=== PATIENT | male | born 1950 | race Caucasian/White ===

== ENCOUNTER 2017-06-03 14:10 | Inpatient (IN) | payer OTHER, MEDICAID ==
[2017-06-03] VITALS (9 sets, daily range): BP systolic 133–180; BP diastolic 1–114; PULSE 87–105; RESP 19–22; O2SAT 95–97
[~2017-06-03] VITALS: Ht 180.3 cm; Wt 107.3 kg
--- NOTE | 2017-06-03 14:12 | ED.REPORT ---
HPI-Chest Pain 40 and Over Date of Service Jun 03, 2017 ED Provider: Uriel Blackman MD Patient is a 66 year old male with a hx of DM and kidney stones who presents to the ED via EMS from [facility] for a STEMI onset this afternoon. He walked into [facility] grasping his chest, diaphoretic, complaining of chest pain and dizziness. After a confirmed STEMI via EKG, he was given a Heprin bolus, nitro x3, and ASA. He denies vomiting, headache, or any other symptoms. His pain is still a 10/10 upon arrival. Nursing Notes Stated Complaint: STEMI Nursing Notes Reviewed: Yes Allergies: Coded Allergies: No Known Allergies (Verified Allergy, Severe, 11/27/03) Uncoded Allergies: ENVIRONMENTAL (Allergy, Unknown, 01/11/08) General Time Seen by MD: 14:08 Chief Complaint Chest pain Hx Obtained From: Patient, EMS Arrived By: Ambulance Sudden in Onset?: Yes Onset Occurred: 1 - 4 hours ago Symptom Duration: Since onset Similar Sx Previous: No Risk Factors )( CAD Risk Stratification Diabetes mellitusNo Hyperlipidemia, No Hypertension, No Known CAD Risk factors reviewed )( TAD Risk Stratification No Aortic valve disease, No Coarctation of aorta, No Marfan's syndrome, No Risk factors reviewed )( PE Risk Stratification No , No , No Previous DVT, No Previous PE Risk factors reviewed Past Medical History Past Medical History DM Kidney stones (x40, per patient) Past Surgical History Kidney stone removal Smoking History Unknown if Ever Smoker Ambulatory Status Independent Review of Systems Cardiovascular: Reports: Chest pain GI: Denies: Vomiting Skin: Reports Diaphoresis Neurologic: Reports: Dizziness, Denies: Headache Complete sys rev & neg: except as marked. Physical Exam Initial Vital Signs Vital Signs (First) Date Time Temp Pulse Resp B/P Pulse Ox O2 Delivery O2 Flow Rate FiO2 06/03/17 14:19 37.4 105 20 180/114 97 Room Air Initial VS: Reviewed, Vital signs abnormal Head / Eyes: Atraumatic, Normocephalic Neck: Full range of motion Skin: Warm, Dry Neurologic: Alert, Oriented, Nonfocal Psychiatric: Mood/affect normal, Behavior normal, Normal thought content General/Constitutional: Awake, Alert Distress / Hydration: Positive: Distress moderate Respiratory / Chest: Breath sounds NL, Breath sounds = bilat, No respiratory distress Cardiovascular: Heart rate NL, Regular rhythm, Heart sounds NL Abdomen: Atraumatic, Soft, Non-tender Re-Eval/Medical Decision Med Decision/Clinical Course 66-year-old male history of diabetes, hyperlipidemia, hypertension presenting as code STEMI. Patient with chest pain and diaphoresis earlier today presented to outside hospital noticed inferior [place] on EKG. Code STEMI was called patient transferred. Patient was evaluated in the ER and EKG shows inferior [place]. Patient with heparin that it been started. Received [address] Louie, interventional cardiology evaluated the patient immediately on arrival patient was taken emergently to the Transportation Clerk. Time of Eval: 14:12 Re-Evaluation/Progress Note: Discussed plan for laboratory clerk. Patient understands and agrees with plan. All questions addressed at this time. Consultation : Referral / Consult Name: Noman Louie MD Consulted With: Cardiology Call Returned at: 14:12 Wad Compressor Operator Adjuster: Will see patient, Agrees with eval, Agrees with plan, Requested laboratory clerk Note: Discussed pt's case. Will take to laboratory clerk Counseled Regarding: Diagnosis, Need for admission Discharge & Departure Primary Impression: STEMI (ST elevation myocardial infarction) Involved coronary artery: unspecified coronary artery Qualified Code: I21.3 - ST elevation (STEMI) myocardial infarction of unspecified site Disposition: ADMITTED TO HOSPITAL Discharge Condition All VS Reviewed: Yes Condition: Stable Referrals: Adrien Colon MD (PCP/Family) Crit Care Except Billable Proc Time Spent: 30-74 minutes Services Performed: Patient management by me, Time spent at bedside, Reviewing test results, Reviewing imaging, Discussing patient care, Documentation in record, Time with fam/surrogate Scribe Attestation Portions of this note were transcribed by Emily Burden. I, Dr. Blackman personally performed the history, physical exam and medical decision-making; I reviewed and confirmed the accuracy of the information in the transcribed note. copies to: Adrien Colon MD, Ben M MD Jun 03, 2017 14:12 EMILY BURDEN Jun 03, 2017 14:20
[2017-06-03] MEDS ORDERED: fentaNYL-PF 50 mCg/mL 2 mL Inj ONE ×2 (14:30→15:37)
[2017-06-03] MEDS ORDERED: Heparin 10,000 Unit/1,000 mL NS Premix IV ONE ×2 (14:42→14:54)
[2017-06-03] MEDS ORDERED: Heparin 1,000 Unit/mL 10 mL Inj ONE ×2 (14:54→15:08)
[2017-06-03] MEDS ORDERED: Phenylephrine/NS-PF 100 mCg/mL 5 mL Syringe IVPUSH ONE (14:54)
[2017-06-03] MEDS ORDERED: Atropine 1 mg/10 mL (Code) Syringe ONE (14:54)
[2017-06-03] MEDS ORDERED: Heparin 1,000 Units/500 mL NS Premix IV ONE (14:54)
[2017-06-03] MEDS ORDERED: Ondansetron 2 mg/mL 2 mL Inj ONE (15:15)
--- NOTE | 2017-06-03 17:09 | NUR ---
From tutorial laboratory supervisor to CCU #[id number] at 1630 post RCA stents. Painfree and in no distress, in good spirits. Right groin with gauze and clear occlusive dressings, clean/dry/intact. Drowsy, no visitors at this time. Sinus rhythm on tele, a bit hypertensive. Follow-up EKG, CXR ordered. Orders noted.
--- NOTE | 2017-06-03 17:51 | DRSVH ---
PROCEDURE: X-RAY CHEST ONE VIEW, PORTABLE ([id number]) INDICATIONS: Chest pain TECHNIQUE: One view of the chest was acquired. COMPARISON: None. FINDINGS: Surgical changes and devices: None. Lungs and pleura: No pleural effusions or pneumothorax. Lungs are clear. Mediastinum: Mediastinal contours appear normal. Heart size is normal. Bones and chest wall: No suspicious bony lesions. Overlying soft tissues appear unremarkable. IMPRESSION: 1. No acute cardiopulmonary disease. Dictated by: Chai Toure M.D. on 06/03/2017 at 17:47 Approved by: Chai Toure M.D. on 06/03/2017 at 17:50
[2017-06-03] MEDS ORDERED: Sodium Chloride LOK Flush 10 mL Syringe IVFLUSH PRN (18:10)
[2017-06-03] MEDS ORDERED: 0.9% Sodium Chloride 1,000 ML IV ONE (18:10)
[2017-06-03] MEDS ORDERED: 0.9% Sodium Chloride 250 ML BOLUS IV PRN (18:10)
[2017-06-03] MEDS ORDERED: Atropine 1 mg/10 mL (Code) Syringe IVPUSH PRN (18:10)
[2017-06-03] MEDS ORDERED: Ondansetron 2 mg/mL 2 mL Inj IVPUSH PRN ×2 (18:10→18:50)
--- NOTE | 2017-06-03 18:15 | PCM.HPMED ---
Subjective Date of Service Jun 03, 2017 Primary Provider: Admitting Physician: Noman Louie MD Primary Care Physician: Adrien Colon MD Attending Physician: Behzad Medina MD Admit Status: From the Emergency Department, Admit to [facility] Team History of Present Illness: The patient has been in his usual state of health until 2 days prior to admission. That time he began to experience episodes of postprandial heartburn. These were localized in the epigastrium up to the mid chest. Sensation will last between one half and 3 hours. The pain did not radiate elsewhere. He was more related to meals and exertion. There were no other exacerbating or palliating factors. This is the first time he has had this symptom. For 2 days he has had sense of restlessness and muscles diffusely. He notes reduced exertional tolerance with some dyspnea when riding bicycle. On day of admission symptoms began in the morning and were more intense associated with nausea. He has had mild exertional shortness of breath but no orthopnea, PND. Had no increased ankle swelling. Visit no previous history of coronary disease. He is a nonsmoker. He has diabetes and dyslipidemia. Review of Systems: Review of systems: 11 systems reviewed and notable findings included above. Allergies Coded Allergies: No Known Allergies (Verified , 06/03/17) Uncoded Allergies: ENVIRONMENTAL (Allergy, Unknown, 01/11/08) Home Medications Patient is not clear on his home medications. Medication reconciliation is pending at time of admission. 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 Family History Father with coronary artery disease age 60, CVA Mother lung cancer One sister lupus and possible CVA 3 children alive and well one with [employer] Social History Hx Alcohol Use: Yes (occasional) Hx Substance Use: No Hx Tobacco Use: No Smoking Status: Unknown if Ever Smoker Living Arrangement: Alone Exam Vital Signs Vital Sign - Last Date Time Temp Pulse Resp B/P Pulse Ox O2 Delivery O2 Flow Rate FiO2 06/03/17 17:54 89 145/1 06/03/17 17:30 20 06/03/17 16:30 36.7 95 Room Air Exam Constitutional: Healthy appearing ; no acute distress; vital signs noted Eyes: sclerae anicteric, no conjunctival pallor, ENMT: ears, nose atraumatic; oral mucosa moist Neck: supple, JVD 4-5 cm Chest: symmetric, no pain or lesions Resp: auscultation clear, wheezes, rales or dullness Cardiac: S1, S2, S4, regular, no murmur Abdomen: bowel sounds present, nontender, no organomegaly Musculoskeletal: no joints with acute erythema, swelling Skin and soft tissues: no rash; no pitting edema Peripheral pulses: normal at wrist, feet Lymphatic: no adenopathy cervical Neurological: Cranial Nerves - face symmetric Reflexes - BJ, KJ symmetric Motor - 5/5 strength, normal tone Coordination - normal movement, no tremor Sensory - light touch intact; vibratory reduced; proprioception intact Psych & Mental Status - oriented Lab and Diagnostics X-Rays, CTs and MRIs PROCEDURE: X-RAY CHEST ONE VIEW, PORTABLE ([id number]) IMPRESSION: 1. No acute cardiopulmonary disease. Dictated by: Chai Toure M.D. on 06/03/2017 at 17:47 . 12-lead ECG 06/03/17 14:13 sinus tachycardia rate [address] elevation II, III, aVF; [address] elevation in V5-V6; nonspecific upsloping ST segment changes V1-V4 . Additional Diagnostics: Cardiac catheterization 06/03 (verbal report Operative lesion in RCA stented 2; moderate disease LAD and left circumflex Assessment & Plan 66-year-old man with type II diabetes mellitus and poorly treated hypertension presents with acute coronary syndrome # ST elevation myocardial infarction, acute, present on admission. - Post catheterization nursing care to right groin lesion - Antiplatelet and anticoagulant medications per cardiology service - Aspirin and intensity statin - Beta onofre as tolerated - Telemetry monitoring in CCU setting for enid-infarct arrhythmia # Acute systolic congestive heart failure, present on admission. New diagnosis , likely ischemic. - Maintain neutral intake and output balance due to dye load - Initiate beta onofre now; ROBERT inhibitor prior to discharge - Diuresis as needed after appropriate flushing of dye load - Plan outpatient CHF follow-up # Type II diabetes mellitus, chronic. - 4 times a day capillary blood glucose - Glucose control goals: Random less than 180, fasting less than 140, none less than 70 - Insulin as needed, divided 50-50 long-acting and nutritional/correctional - Hold metformin at this time # Hypertension, poorly controlled, chronic. - Initiate beta onofre; ROBERT inhibitor # GERD, chronic. -By mouth pantoprazole Disposition: Admitted to inpatient status with expectation of at least 2 nights of inpatient care for acute coronary syndrome. Anticipate cardiology service to evaluate post stenting cardiac function and consider need for further interventions. May need treatment of congestive heart failure for 1-3 days. Anticipated length of stay 3 days. Pain Evaluation: Adequate Pain Control VTE Prophylaxis: Other Resuscitation Status: CPR: Attempt Resuscitation Time spent 70 minutes Behzad Medina MD Jun 03, 2017 18:15
--- NOTE | 2017-06-03 18:17 | NUR ---
Patient is requesting he have an "EGD scope" prior to discharge because of his history of "indigestion".
[2017-06-03] MEDS ORDERED: Senna-Docusate 8.6-50 mg Tablet PO PRN (18:50)
[2017-06-03] MEDS ORDERED: Polyethylene Glycol (PEG) 17 Gm Powder PO PRN (18:50)
[2017-06-03] MEDS ORDERED: Alum-Mag Hydrox-Simeth 30 mL Suspension PO PRN (18:50)
[2017-06-03] MEDS ORDERED: Glucose 40% Oral Gel 15 Gm Tube PO PRN (18:50)
[2017-06-03 20:09] LABS: Magnesium 1.7 mg/dL (1.6-2.6)
[2017-06-03] MEDS: Pantoprazole 20 mg ER24 Tablet PO SCH (20:24)
[2017-06-03] MEDS ORDERED: METF500T4 PO (20:56)
[2017-06-03] MEDS ORDERED: INSU100I13 SUBQ (21:00)
[2017-06-03] MEDS ORDERED: Insulin GLARgine 100 Unit/mL Syringe SUBQ SCH (21:00)
[2017-06-03] MEDS: Insulin LISPRO 300 Unit/3 mL Inj SUBQ SCH (22:02)
[2017-06-04] VITALS (7 sets, daily range): BP systolic 118–130; BP diastolic 77–88; PULSE 84–92; RESP 13–23; O2SAT 94–96
--- NOTE | 2017-06-04 01:48 | CS94 ---
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 Coronary angiogram - emergent. 2. Left heart catheterization (LHC): Pressure measurement. 3. Percutaneous coronary intervention (PCI): a. Stents of proximal RCA (drug-eluting stents): A Xience 3.5 x 23 mm; and a second Xience 3.5 x 12 mm overlapping proximally; both post dilated at high pressure to 4.0 mm. CLINICAL DETAILS: This 66-year-old man had no prior history of heart disease until he presented today to [facility] complaining of a three-day history of intermittent severe retrosternal chest discomfort including episodes at rest that had then become severe and continuous today for two hours prior to presentation. He had marc inferior ST elevation and was transferred to this hospital. ECG shows several mm of inferior ST elevation with confirmatory reciprocal ST depression in aVL, as well as ST depression in leads V1 and V2. Underlying CAD risk factors include hypertension, and metformin treated diabetes and family history of premature coronary artery disease. He was markedly hypertensive with initial blood pressure 195/135. PROCEDURAL DETAILS: I evaluated him immediately on his arrival to the emergency department where I discussed the findings, impressions and management considerations with him including the recommendation to proceed to emergent coronary angiogram for definitive diagnosis and to guide treatment decisions including medical therapy, anticipated PCI or coronary bypass surgery if needed. We discussed the procedure including possible risks and complications. We discussed bleeding infection, blood clots; as well as injury to nerve artery vein or kidney; and also arrhythmia, drug reaction; or others. We discussed treatment as needed including pacemaker surgery or transfusion. We discussed more serious complications that are possible including stroke, heart attack, cardiac arrest, and emergency surgery including transfer for coronary bypass surgery if needed. After discussion and questions, he signed informed consent to proceed. He was then taken to the catheterization laboratory where he was prepped sterilely and draped. CORONARY ANGIOGRAM: Arterial access was obtained without difficulty in the right common femoral artery using fluoroscopic localization over the femoral head, then lidocaine local anesthesia; and modified Seldinger technique to insert a 10 cm 6-Bulgarian side-arm sheath. Catheters were advanced and exchanged over a long 0.035 inch J-tip guidewire. The left coronary artery was engaged with a 6-Bulgarian JL-4 diagnostic catheter. Then, the right coronary artery was engaged with a 6-Bulgarian JR-4 guide catheter. LHC: At the end of the procedure, a 6-Bulgarian pigtail catheter was advanced across the aortic valve into the left ventricle to measure pressures including LVED and pullback. No LV angiogram done. CARDIAC PCI OF PROXIMAL RCA: The diagnostic images were reviewed. I noted multi-vessel CAD with the apparent culprit of his inferior ST [place] being a focal culprit tubular subtotal 90-99% proximal RCA lesion at the first (small) RV branch. (CHIDI 2 flow). The lesion has filling defects consistent with thrombus. He had been treated with ASA 324 mg chewed as well as heparin bolus and heparin IV infusion. NTG IV was used to control his chest pain and hypertension. For the intervention, he received a loading dose of prasugrel 60 mg p.o. Procedural anticoagulation was obtained with bolus IV heparin to achieve therapeutic ACT. Aliquots of NTG IC were used during the procedure. The 6-Bulgarian JR-[address] was used for intervention. The lesion was crossed without difficulty with a BMW wire--0.014 inches x 190 cm--placed distally in the tortuous distal RCA. PREDILATATION: The lesion was initially pre-dilated with a Trek balloon--2.5 x 15 mm--inflated to 10 atmospheres. The lesion was substantially improved and distal flow was improved. His chest pain cleared and he became chest pain free. STENT: Next, a Xience MICH--3.5 x 23 mm--was deployed across the culprit lesion and deployed at 18 atmospheres. POSTDILATATION: The stented segment was post dilated with a noncompliant Trek NC balloon--4.0 x 12 mm--inflated several times within the stent to high pressure at 18 atmospheres. Followup angiographic views revealed an overall excellent result. However, at the proximal edge of the stent, there is an eccentric sharp edge where the stent does not conform exactly to the tortuosity of the artery. There is also a subtle defect raising question of dissection. I covered this area across the proximal edge of the stent with a second Xience MICH--3.5 x 12 mm--deployed overlapping the first stent proximally at 18 atmospheres. Finally the second stent and area of overlap were post dilated again with the noncompliant Trek balloon--4.0 x 12 mm--inflated at high pressure. Completion angiogram showed an excellent final result with no residual lesion; CHIDI-3 flow resumed; and no angiographic complication evident. PROCEDURE WITHOUT DIFFICULTY. Patient tolerated procedure well. No complications. A side-arm sheath angiogram shows adequate access for a closure device. Arterial hemostasis was obtained without difficulty using a 6-Bulgarian StarClose clip. The patient became chest pain free and the ST segments began to resolve somewhat. He was transferred in improved and stable condition from the catheterization laboratory to go to the CCU unit for ongoing care including by the admitting hospitalist service. I discussed the findings, impressions and management considerations with the patient (no family initially present); and with the hospitalist service, Dr. Medina. FINDINGS: 1. LMCA: Short. Intact. The left main coronary artery has mild atherosclerotic plaquing without angiographically significant narrowing. 2. LAD: The left anterior descending coronary artery is a moderate-size transapical vessel with severe diffuse disease including moderate diffuse proximal disease about 60%; then a severe tubular 90% lesion (CHIDI-3 flow); and DX-1 has diffuse significant proximal disease with a diffuse tubular distal 70% lesion. 3. LCX: The left circumflex coronary artery has a proximal tubular 80% lesion (CHIDI-3 flow); and the LCX distribution consists primarily of a long moderate-size LPL branch. 4. RAMUS: There is a moderate-sized ramus branch with diffuse atherosclerotic plaquing. 5. RCA: Dominant and very large. Note this is a 4 mm or larger vessel with a culprit tubular proximal 95% subtotal lesion at the first RV branch with filling defect consistent with thrombus (CHIDI 2-3 flow). The PDA is moderate size and there is a large RPLB with significant disease in the mid RPLB. 6. LHC: LVED 35 mmHg (pre A 25 mmHg); and no systolic gradient on pullback across the aortic valve. CONCLUSIONS: 1. PCI--two overlapping Xience MICH of proximal RCA culprit lesion. 2. Acute coronary syndrome (ACS): Inferior ST-elevation myocardial infarction. 3. Coronary artery disease (CAD)--multi-vessel CAD including: Culprit subtotal 99% proximal RCA lesion; and 80% proximal LCX lesion; and diffuse disease of the LAD including intermediate diffuse proximal disease with 80% to mid LAD lesion; and disease of the diagonal proximally and mid. RECOMMENDATIONS: 1. ECASA--indefinitely. 2. Prasugrel--plan one year if well tolerated including ongoing Cardiology followup. I discussed with him the critical importance of mandatory dual antiplatelet therapy and not to stop prasugrel for any reason without immediate Cardiology consultation. 3. Echocardiogram. 4. OMT--guideline directed optimal medical therapy for his underlying CAD risk factors and for CAD including DAPT; high-intensity statin; beta-onofre; and ROBERT inhibitor. COMMENT: He has multivessel CAD which may be better amenable to medical management and/or staged intervention than to bypass considering that the LAD .
[2017-06-04 03:40] LABS: Mean Corpuscular Volume 89.7 fL (81-100)
--- NOTE | 2017-06-04 05:02 | NUR ---
Cardiac. Tele sinus rhythm 80s to 90s. Denies chest pain or discomforts. Right groin site stable without hematoma or bleeding. Repositions independently. Temp at 1999 38.4. Had already received tylenol for headache. Temp 37.4-37.1 this am. Iv saline locked. Voiding per urinal. Sats on room air mid 90s.
[2017-06-04] MEDS: Pantoprazole 20 mg ER24 Tablet PO SCH ×2 (08:30→21:38)
[2017-06-04] MEDS: Heparin 5,000 Unit/mL Inj SUBQ SCH ×2 (08:30→15:50)
[2017-06-04] MEDS: Insulin LISPRO 300 Unit/3 mL Inj SUBQ SCH ×4 (08:30→22:00)
--- NOTE | 2017-06-04 10:27 | CONS ---
[address] [address] CONSULTATION REPORT PATIENT: DOCTOR Patria MADRIGAL : 1950 MR#: [id number] ADMIT: 06/03/2017 JOB ID: [id number] CARDIOLOGY CONSULTATION NOTE--INITIAL CRITICAL CARE EVALUATION (EMERGENCY DEPARTMENT): DATE OF SERVICE: May CONSULTING PHYSICIAN: Cardiology--Noman Louie M.D. PROBLEMS: 1. Acute coronary syndrome: a. Chest pain--ischemic time three hours. b. STEMI--acute inferior myocardial infarction. CAD RISK FACTORS: Diabetes--metformin treated. No definite history of hypertension. No definite history of hyperlipidemia. Nonsmoker. Family history of premature coronary disease noted. CHIEF COMPLAINT: STEMI activation. HISTORY OF PRESENT ILLNESS: PRESENTATION: I came emergently to meet this man as he arrived by EMS to the emergency department in transfer from [facility] where he had presented two hours after the onset of severe continuing pressure-like retrosternal chest discomfort associated with diaphoresis. He was reported to have arrived at the outside emergency department "clutching his chest." He describes that he has no prior history of heart disease until he began to have similar symptoms three days ago which were intermittent but resting and then became continuous today. He was treated with ASA 324 mg; as well as heparin bolus and heparin IV infusion; and NTG. He had little resolution of his chest discomfort that he described as more than 10/10 intensity. Note he was very hypertensive on admission with systolic blood pressure 195/135. He was not otherwise clinically unstable. 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 Prior to the current illness, he has not had effort limitation or effort-related symptoms. He reports no other ischemic symptoms or congestive symptoms such as exertional dyspnea, nocturnal dyspnea or edema. He has no history of arrhythmia or current symptoms such as tachy, palpitation, presyncope or syncope. Regarding other possible underlying vascular disease, there is no history of CVA or current symptoms of TIA. No claudication. Regarding possible dual antiplatelet therapy, he reports no bleeding symptoms; no anticipated upcoming surgery; and he indicates reliable to take mandatory medicines if needed. ALLERGIES: No known drug allergies reported. I elicit no history of allergy to medical contrast, seafood, fish iodine or shellfish. MEDICATIONS: He takes only: 1. Metformin. 2. Occasional NSAID p.r.n. PAST MEDICAL HISTORY: He reports only a history of kidney stones. REVIEW OF SYSTEMS: I questioned him in the emergent setting about a 13-point review of systems which is unremarkable, noncontributory or negative except as noted including: No history of thyroid disorder. No history of lung disorder including asthma, wheezing. No history of GI disorder including hepatitis, ulcer, indigestion or jaundice. PERSONAL SOCIAL HISTORY: Cigarettes--he reports lifetime nonsmoker. ETOH--he reports he does not use much alcohol. Family--he lives with his and has a son locally. FAMILY HISTORY: He reports a family history of premature coronary disease--no further details are clarified in the emergent setting. PHYSICAL EXAMINATION: GENERAL APPEARANCE: Pleasant, middle-aged man who is in substantial distress with chest discomfort. VITAL SIGNS: Initial blood pressure 180/114 with heart rate 105 regular in sinus rhythm on telemetry. Respiratory rate 18 and unlabored with SpO2 97% on room air. Afebrile. NEUROLOGIC AND MENTAL STATUS: No overt focal neurologic defect noted. He is alert, oriented, appropriate and conversant. HEENT : PERRL. Conjunctivae pink. Sclerae not icteric. Mouth: Mucous membranes intact. NECK: Carotid upstroke intact bilaterally without bruit. Jugular venous pressure unremarkable, examined supine. No palpable thyromegaly. No palpable cervical lymphadenopathy. LUNGS: Clear to auscultation bilaterally. Examined supine. CARDIAC: Cardiac examination notable for a regular rhythm, S4 gallop and no loud murmur. ABDOMEN: Obese but otherwise unremarkable examination without tenderness, mass, hepatosplenomegaly or bruit of abdominal aortic aneurysm. EXTREMITIES: Intact without edema; and the dorsalis pedis pulses are palpable bilaterally. DIAGNOSTIC STUDIES: ELECTROCARDIOGRAM: I reviewed the multiple pre-hospital ECGs and the admitting ECG here which show sinus rhythm with [address] elevation and confirmatory reciprocal ST-depression in lead aVL as well as ST depression in leads V1-3. The impression is a clear-cut inferior WA. CHEST X-RAY: Chest x-ray done later shows cardiomegaly and borderline to mild pulmonary venous hypertension. LABORATORY: Prior to the procedure, I reviewed the laboratory results faxed from the initial assessment at [facility]. They are overall satisfactory to proceed with emergent intervention. ASSESSMENT: I discussed the findings, impressions and management considerations with the patient and with the emergency department staff, Dr. Uriel Pena; and with the admitting hospitalist team include (Dr. Medina) including: Acute coronary syndrome with acute inferior myocardial infarction: He presents with a reasonably typical scenario of recent onset chest discomfort progressing to severe unremitting pain today. The ECG confirms inferior WA and the preprocedure impression was likely that the infarct-related artery is right coronary artery. He has severe ongoing pain and marked hypertension but otherwise stable clinically. I discussed the recommendation to proceed with emergent coronary angiogram for definitive diagnosis and to guide treatment options including medical therapy, anticipated PCI or coronary bypass surgery if needed with him. RECOMMENDATIONS: 1. Cardiac catheterization--emergent now. 2. Admit to hospitalist service. 3. Echocardiogram. 4. OMT--guideline directed optimal medical therapy for underlying coronary risk factors; and for his apparent coronary disease including ASA; anticipated DAPT; high-intensity statin; beta-onofre; and ROBERT inhibitor after contrast.
--- NOTE | 2017-06-04 12:44 | DRSVH ---
[facility] [address] [place] [address] Echocardiogram Report Name: DOCTOR ROHAN EStudy Date: Height: 71 in Hospital Exam Location: [facility] Weight: 200 lb Gender: Male BSA: 2.1 m2 : 1950 Age: 66 yrs BP: 130/87 mm Hg Reason For Study: Chest pain Ordering Physician: HOSPITALIST [facility] Performed By: Raeann Pang Referring Physician: Bridget Velazquezist Interpretation Summary Left ventricular wall thickness is mild-moderately increased. Left ventricular systolic function is mildly reduced. Left ventricular ejection fraction is estimated to be 45%. There is hypokinesis along the basal and mid inferior wall, basal and mid inferoseptal wall, and basal inferolateral wall. Assessment of diastolic parameters suggests a pseudonormalization pattern, consistent with elevated filling pressures. The right ventricle is normal in size, thickness and function. The right ventricular systolic function is normal. Pulmonary artery pressures cannot be estimated because of the lack of a measurable TR jet velocity. The left atrium is borderline dilated. The right atrium is normal in size. There is no significant valvular heart disease. The ascending aorta is moderately enlarged. Procedure: A two-dimensional transthoracic echocardiogram with color flow and Doppler was performed. The study quality was technically adequate. There is no prior echocardiogram noted for this patient. The heart rate ranged between 77-91 bpm during the study. Left Ventricle: The left ventricle is normal in size. Left ventricular wall thickness is mild-moderately increased. Left ventricular systolic function is mildly reduced. Left ventricular ejection fraction is estimated to be 45%. There is hypokinesis along the basal and mid inferior wall, basal and mid inferoseptal wall, and basal inferolateral wall. Assessment of diastolic parameters suggests a pseudonormalization pattern, consistent with elevated filling pressures. Right Ventricle: The right ventricle is normal in size, thickness and function. The right ventricular systolic function is normal. Atria: The left atrium is borderline dilated. The right atrium is normal in size. The interatrial septum is intact with no evidence for an atrial septal defect. The atrial septum is aneurysmal. Mitral Valve: The mitral valve leaflets appear mildly thickened, but open well. There is mild mitral annular calcification. There is trace mitral regurgitation. Aortic Valve: The aortic valve is not well visualized. No aortic regurgitation is present. Tricuspid Valve: The tricuspid valve leaflets are thin and pliable. There is trace tricuspid regurgitation. Pulmonary artery pressures cannot be estimated because of the lack of a measurable TR jet velocity. Pulmonic Valve: The pulmonic valve is not well seen, but is grossly normal. There is a trace or physiologic amount of pulmonic regurgitation. There is no significant valvular heart disease. Great Vessels: The aortic root is mildly dilated. The ascending aorta is moderately enlarged. The IVC is dilated (diameter is greater than 2.1 cm) and it collapses less than 50% with a sniff. This suggests a high right atrial pressure of 15 mm Hg. Pericardium/ Pleura There is no pericardial effusion. There is an anterior echo-free space consistent with a fat pad. There is no pleural effusion. MMode/2D Measurements & Calculations LVIDd: 5.4 cm RA long axis LVOT diam: 2.7 cm LVIDs: 4.2 cm LA A2 area: 21.1 cm asc Aorta Diam FS: 21.7 % LA A4 area: 22.4 cm RA area IVSd: 1.4 cm LA length (vol) Ao Arch Diam (Prox LVPWd: 1.4 cm : 16.3 cm Trans): 3.0 cm LA vol: 68.9 ml RA vol LA vol index : 45.6 ml RA : 21.6 mm2 IVC diam: 2.5 cm LV benoit. diameter/BSA LV sys. diameter/BSA TAPSE: 1.8 cm (cm/m^2): 2.5 (cm/m^2): 2.0 Doppler Measurements & Calculations Ao V2 max MV E max vinay MV E/A: 0.74 MV dec time : 92.1 cm/sec : 60.9 cm/sec Med Peak E' Vinay : 0.21 sec Ao max PG MV A max vinay : 3.4 mmHg : 81.9 cm/sec E/E' med: 17.0 Ao mean PG Lat Peak E' Vinay LVOT Max Vinay E/E' lat: 9.7 : 80.2 cm/sec E/e' average: 13.3 MARY JO(I,D): 4.8 cm sev ratio Ao V2 mean LV V1 max PG MARY JO indexed to BSA : 65.8 cm/sec (cm^2/m^2): 2.3 Ao V2 VTI: 16.4 cm LV V1 VTI: 13.6 cm MARY JO(V,D): 5.0 cm2 Reading Physician:JESSICA
--- NOTE | 2017-06-04 14:42 | PROG NOTE ---
[address] [address] PROGRESS NOTE PATIENT: DOCTOR Patria MADRIGAL : 1950 MR#: [id number] ADMIT: 06/03/2017 JOB ID: [id number] DATE: 06/04/2017 CARDIOLOGY CONSULTATION PROGRESS NOTE: Followup inpatient visit. CONSULTING PHYSICIAN: Cardiology--Noman Louie MD. PROBLEMS: 1. Acute inferior MN with primary PCI of culprit proximal RCA. 2. Diabetes. INTERIM SUMMARY AND HOSPITAL COURSE: Hospital day two: I saw this 66-year-old man along with his in the PCU room on Cardiology rounds today, Sunday, June 04, 2017. He presented emergently yesterday by EMS transfer from [facility]. He had three days of chest discomfort culminating in severe persistent discomfort for 2 hours yesterday prior to presenting there. He underwent emergent PCI of culprit proximal RCA for acute inferior MN. Overall he has done very well. Since the procedure he has had no trouble with the catheterization access site. He has had no more chest discomfort. He has had no congestive symptoms. He has begun ambulating in the room and a little bit in the hallway. He feels good and would even be ready to go home today. Otherwise no other post infarct complications reported. I reviewed his medical regimen with him and his including: ASA 81, Prasugrel 10, Lipitor 80, metoprolol tartrate q.i.d., pantoprazole 20 mg b.i.d., insulin lispro p.r.n., insulin glargine 20 units. No AC yet. PHYSICAL EXAMINATION: Vital signs stable, with blood pressure now controlled 125/84. He had good post cath hydration and urine flow. Heart and lungs: Intact. Extremities: At the catheterization site is only mildly tender and otherwise fully intact, with minimal ecchymosis, good pulse, no pulsatile mass, no hematoma, no bruit, and strong distal pulse at the REP. ECG: The ECG shows sinus rhythm with inferior ST elevation that is less but still some persistent. Inferior Q-waves have developed. The lateral ST elevation has resolved. The right precordial ST depression has mostly resolved. Echocardiogram: I reviewed the images of the echocardiogram done today which shows only mild LV dysfunction with ejection fraction about 45% and inferior akinesis. Also note moderately enlarged aortic root. LABORATORY: Platelet count 108,008. Glucose 251. LFT: Note AST 417, ALT 81. The creatinine is stable at 0.87, with potassium 4.2. ASSESSMENT: I discussed the findings, impressions, and management considerations extensively with him and his last night and again this morning including his course and plans for followup, as well as with the hospitalist service including Dr. Medina. Coronary artery disease (CAD) with inferior myocardial infarction (MN) and percutaneous coronary intervention (PCI) of culprit right coronary artery (RCA): He is doing well post emergent PCI for inferior myocardial infarction. No heart failure. No arrhythmia has been reported. He is beginning to ambulate without difficulty. The echo suggests only mild LV dysfunction from regional wall motion abnormality consistent with his inferior myocardial infarction. We discussed the critical importance of dual antiplatelet therapy and not to stop prasugrel for any reason without immediate Cardiology consultation. We talked about bleeding risks. We talked about resuming activity with moderate common sense, symptom limited progressive return to exercise. We discussed the strong importance of a rehabilitation program and he seems motivated for that. We discussed not to lift more than 10 pounds for a week after the catheterization to allow the access site to heal well. We also discussed his other medications including statin, beta onofre, and ROBERT inhibitor. I discussed followup with PCP as early as possible after hospital discharge and ongoing Cardiology followup with an early return visit as well. We discussed his residual coronary disease and our approach to that including intervention if he has symptoms or consideration of staged intervention on the circ. The LAD is diffusely diseased. Coronary bypass could also be considered if the proximal LAD, which is diffusely diseased, is considered a significant issue. RECOMMENDATIONS: Ambulation today: I later saw him ambulate vigorously around the hallway. As we discussed, consider DC tomorrow. Add ROBERT tomorrow. Follow up diabetes: Consider endocrinology evaluation (he uses metformin and takes Lantus occasionally up to 140 units a day without controlling his as blood sugar). This could be all updated.
[2017-06-04] MEDS ORDERED: Glucose 40% Oral Gel 15 Gm Tube PO PRN (15:05)
--- NOTE | 2017-06-04 15:16 | PCM.PNMED ---
Subjective Date of Service Jun 04, 2017 Subjective 66-year-old man with hypertension, diabetes and dyslipidemia presents with acute inferior wall ST elevation PR. Reports feeling great today. No chest pain no dyspnea. Motivated to ambulate. Exam Vital Signs Vital Sign - Last Date Time Temp Pulse Resp B/P Pulse Ox O2 Delivery O2 Flow Rate FiO2 06/04/17 11:19 84 18 125/84 96 Room Air 06/04/17 04:00 37.1 Intake and Output 06/03/17 06/03/17 06/04/17 Cumulative From/Thru 15:00 23:00 07:00 06/03/17 14:19 - 06/04/17 05:02 Intake Total 500 ml 400 ml 900 ml Output Total 1550 ml 1550 ml Balance 500 ml -1150 ml -650 ml Intake Oral 0 ml 0 ml IV Total 500 ml 400 ml 900 ml Output Urine Total 1550 ml 1550 ml # Voids 0 0 Exam General: Suntanned, mildly obese, no acute distress HEENT: sclerae anicteric, oral mucosa moist Neck: 3-4 cm JVP Chest: clear to auscultation Cardiac: S1S2, S4 no murmur Abdomen: BS normal, non-tender Extremities: No edema Neuro: A&O, cranial nerves symmetric, motor strength 5/5, coordination normal IVs and Medications Medications Reviewed: Medications were reviewed in detail Lab and Diagnostics Result Diagram: 06/04/17 0305 06/04/17 0305 X-Rays, CTs and MRIs PROCEDURE: X-RAY CHEST ONE VIEW, PORTABLE ([id number]) IMPRESSION: 1. No acute cardiopulmonary disease. Dictated by: Chai Toure M.D. on 06/03/2017 at 17:47 . 12-lead ECG 06/03/17 14:13 sinus tachycardia rate [address] elevation II, III, aVF; [address] elevation in V5-V6; nonspecific upsloping ST segment changes V1-V4 . Cardiac Echo Impressions Echocardiogram Report Name: DOCTOR Patria MADRIGAL Study Date: 06/04/2017 Interpretation Summary Left ventricular wall thickness is mild-moderately increased. Left ventricular systolic function is mildly reduced. Left ventricular ejection fraction is estimated to be 45%. There is hypokinesis along the basal and mid inferior wall, basal and mid inferoseptal wall, and basal inferolateral wall. Assessment of diastolic parameters suggests a pseudonormalization pattern, consistent with elevated filling pressures. The right ventricle is normal in size, thickness and function. The right ventricular systolic function is normal. Pulmonary artery pressures cannot be estimated because of the lack of a measurable TR jet velocity. The left atrium is borderline dilated. The right atrium is normal in size. There is no significant valvular heart disease. The ascending aorta is moderately enlarged. . Additional Diagnostics Cardiac catheterization 06/03 (verbal report Operative lesion in RCA stented 2; moderate disease LAD and left circumflex Assessment & Plan 66-year-old man with type II diabetes mellitus and poorly treated hypertension presents with acute coronary syndrome # ST elevation myocardial infarction, acute, present on admission. Stents to RCA placed 06/03. - Praugrel - Aspirin and intensity statin - Metoprolol and lisinopril - Continue Telemetry monitoring; okay to off telemetry for showers # Acute systolic congestive heart failure, present on admission. New diagnosis , likely enid-infarct ischemic. Echocardiogram with LVEF 45%. Not clear that he will have significant LV dysfunction after recovery from acute coronary syndrome. - Maintain neutral intake and output balance due to dye load - Continue beta onofre - Initiate ROBERT inhibitor # Type II diabetes mellitus, chronic. - Awaiting hemoglobin A1c ordered at time of admission - 4 times a day capillary blood glucose - Glucose control goals: Random less than 180, fasting less than 140, none less than 70 - Insulin as needed, divided 50-50 long-acting and nutritional/correctional - Resume metformin time of discharge # Hypertension, poorly controlled, chronic. - Beta onofre; ROBERT inhibitor # Elevated AST, present on admission. Associated with mild elevation of ALT. Etiology is unclear, possibly cardiac. - Repeat CMP in a.m. - Check total CK and troponin - Hepatitis viral serology # GERD, chronic. -By mouth pantoprazole Disposition: Admitted to inpatient status with expectation of at least 2 nights of inpatient care for acute coronary syndrome. Anticipate cardiology service to evaluate post stenting cardiac function and consider need for further interventions. May need treatment of congestive heart failure for 1-3 days. Anticipated length of stay 3 days. VTE Prophylaxis: Other Resuscitation Status: CPR: Attempt Resuscitation Time spent 35 minutes Behzad Medina MD Jun 04, 2017 15:16
--- NOTE | 2017-06-04 15:31 | NUR ---
Social Work: Attempted Assessment/Multidisciplinary Rounds D: Pt discussed in am rounds. Pt will likely discharge home in 1-2 days per MD. Pt not anticipated to have any home needs. Capacity for self care addressed; no concerns or needs identified at this time. CASHIER AND WAITER/WAITRESS attempted to meet with the patient at bedside however the patient was using the bathroom and unable to participate in assessment. A: Pt who lives on [facility], alone. P: CASHIER AND WAITER/WAITRESS to attempt to complete assessment with patient tomorrow. Anticipate discharge home via POV once medically stable. CASHIER AND WAITER/WAITRESS to assess for further d/c needs during assessment. IRMA Burrell
[2017-06-04 17:48] LABS: TROPONIN T 5.77 ug/L (0.0-0.011)
--- NOTE | 2017-06-04 19:03 | NUR ---
Status Patient progressing towards planned outcomes. Paitent has as denied chest pain this shift. Right groin site soft, no sign or symptoms of active bleeding or hematoma. Vital signs stable. Tolerating increased activity levels, ambulating halls without difficulty. BG elevated, new orders received and administered.
[2017-06-04] MEDS ORDERED: Insulin GLARgine 100 Unit/mL Syringe SUBQ SCH (21:00)
[2017-06-05 00:23] VITALS: BP 125/82; PULSE 88; RESP 22; O2SAT 95
[2017-06-05] MEDS: Heparin 5,000 Unit/mL Inj SUBQ SCH ×2 (00:28→08:11)
[2017-06-05 04:49] VITALS: BP 105/70; PULSE 87; RESP 20; O2SAT 95
--- NOTE | 2017-06-05 05:27 | NUR ---
Groin Pt groin site soft with no hematoma noted. Pt able to ambulate in the hallways and is independent in room with no CP SOB or dizziness noted. VSS and Tele SR
[2017-06-05 05:39] VITALS: PULSE 95
[2017-06-05] MEDS: Pantoprazole 20 mg ER24 Tablet PO SCH (08:11)
[2017-06-05] MEDS: Insulin LISPRO 300 Unit/3 mL Inj SUBQ SCH ×2 (08:21→12:20)
[2017-06-05 08:30] VITALS: BP 113/66; PULSE 73; RESP 16; O2SAT 95
[2017-06-05 08:36] VITALS: PULSE 107
[2017-06-05 12:14] VITALS: BP 118/82; PULSE 93; RESP 18; O2SAT 96
[2017-06-05] MEDS ORDERED: AMIODARONE IV SCH (12:50)
[2017-06-05] MEDS ORDERED: [UNRECOGNIZED DRUG - OTHER] IV SCH (12:50)
[2017-06-05] MEDS ORDERED: Amiodarone 150 mg/100 mL D5W 150 MG in IV Premix 1 EACH IV ONE (12:50)
[2017-06-05] MEDS ORDERED: ATOR40TA69 PO (13:18)
[2017-06-05] MEDS ORDERED: METO-274 PO (13:18)
[2017-06-05] MEDS ORDERED: ASPI81TA3 PO (13:18)
[2017-06-05] MEDS ORDERED: PRAS10TA5 PO (13:18)
[2017-06-05] MEDS ORDERED: LISI-567 PO (13:18)
--- NOTE | 2017-06-05 13:25 | PCM.DIMED ---
Discharge Instructions Date of Service Jun 05, 2017 Dates of Hospitalization Jun 03, 2017 at 15:30 Discharge Diagnosis Discharge Diagnosis ST elevation myocardial infarction, inferior lateral Acute systolic congestive heart failure, LVEF 45% Diabetes mellitus, type II, uncontrolled, hemoglobin A1c 9.2% Hypertension Medication Instructions Additional med instructions Prescriptions have been printed for cardiac medications. You are to resume metformin and once daily Lantus insulin at a dose that results in morning blood sugars between 80-130 on most days. You may discuss a prescription for Jardiance (empagliflozin) which is a diabetes medication that may reduce cardiac complications. This medication will require prior authorization submitted by your primary care provider. Diet Discharge Diet: Heart Healthy, Diabetic Activity Discharge Activity: Other (avoid strenuous exercise and lifting for 2 weeks; moderate aerobic exercise may resume) Patient Instructions Patient Instructions Strict control of blood pressure, diabetes and adherence to cardiac medications especially prasugrel (Effient). Follow-up Provider: Kenny Dyer MD Follow-up with PCP in: 4 weeks (call the cardiology clinic for a follow-up appointment with Dr. Dyer. Indicates that you are hospitalized with stents placed by Dr. Louie.) Provider: Roberto Ramirez MD Follow-up in: 1 week (call for a posthospitalization follow-up visit to monitor blood pressure, diabetes and other issues.) Behzad Medina MD Jun 05, 2017 13:25
--- NOTE | 2017-06-05 15:27 | NUR ---
Social Work: Initial Assessment/Discharge/Multi-Disciplinary Rounds D: EMR reviewed. Please see Initial Assessment linked to this note for more information. Pt is a 66 y/o male admitted for stemi per H&P. Pt has a readmit risk score of 0. SW met with pt at bedside to conduct initial assessment. Pt was alert and oriented x3. SW explained role and wrote phone number on white board. SW provided "Your Discharge Planning Checklist" and encouraged pt to contact SW for any discharge planning questions. Pt's insurance is [employer] and Medicaid. Pt does not have BRANDON. Pt gave verbal consent to contact zeke Shannon [phone] for discharge planning. DPOA/advanced directive ppw discussed - ppw provided and SW encouraged pt to provide a copy to the hospital once complete. Pt is independent at baseline. Per rounds, pt anticipated to discharge this afternoon - no SW needs identified. A: SW assessed pt's capacity for self-care. SW does not have any concerns for pt's capacity for self-care. Pt is independent with ADLs at baseline. Pt does not have any concerns regarding discharge at this time. Pt feels safe discharging home and will remain independent. P: Pt to discharge home this afternoon with friend to transport via POV. SW provided [employer] [place] for Kiley Maurer to [place]. Faxed to [facility]. No SW needs identified. No MD orders received. SW will continue to follow for needs. IRMA Davenport Addendum: 06/05/17 at 1530 by LLUVIA SIEGEL Amended: Links added.
--- NOTE | 2017-06-05 16:40 | NUR ---
Discharge Pt discharged with friend at 1500 via private car. All discharge instructions gone over and understood about follow up care post stent. All medications gone over and understood, prescriptions sent with pt. Right groin site soft and non tender, minimal bruising. All belongings taken home. Vitals stable, A&Ox3, and pt walked out. IVx2 and tele removed. All questions answered.
--- NOTE | 2017-06-05 18:12 | PCM.DC.MED ---
Discharge Summary Date of Service Jun 05, 2017 Dates of Hospitalization Date of Hospital Admission Jun 03, 2017 at 15:30 Date of Discharge: Jun 05, 2017 Providers: Admitting Physician: Noman Louie MD Primary Care Physician: Nopgabriela Attending Physician: Ca Wilson MD Diagnosis at Time of Discharge Diagnosis at Time of Discharge ST elevation myocardial infarction, inferior lateral Acute systolic congestive heart failure, LVEF 45% Diabetes mellitus, type II, uncontrolled, hemoglobin A1c 9.2% Hypertension Consultations Cardiology, Dr. Bassem Louie Procedures XRay, CTs & MRIs PROCEDURE: X-RAY CHEST ONE VIEW, PORTABLE ([id number]) IMPRESSION: 1. No acute cardiopulmonary disease. Dictated by: Chai Toure M.D. on 06/03/2017 at 17:47 . ECG 12 Lead 06/03/17 14:13 sinus tachycardia rate [address] elevation II, III, aVF; [address] elevation in V5-V6; nonspecific upsloping ST segment changes V1-V4 . Cardiac Echo Impression Echocardiogram Report Name: DOCTOR Patria MADRIGAL Study Date: 06/04/2017 Interpretation Summary Left ventricular wall thickness is mild-moderately increased. Left ventricular systolic function is mildly reduced. Left ventricular ejection fraction is estimated to be 45%. There is hypokinesis along the basal and mid inferior wall, basal and mid inferoseptal wall, and basal inferolateral wall. Assessment of diastolic parameters suggests a pseudonormalization pattern, consistent with elevated filling pressures. The right ventricle is normal in size, thickness and function. The right ventricular systolic function is normal. Pulmonary artery pressures cannot be estimated because of the lack of a measurable TR jet velocity. The left atrium is borderline dilated. The right atrium is normal in size. There is no significant valvular heart disease. The ascending aorta is moderately enlarged. . Other Diagnostics PATIENT: DOCTOR Patria MADRIGAL : 1950 PROCEDURE NOTE--CARDIAC CATHETERIZATION LABORATORY: SERVICE DATE: May RESEARCH DEVELOPMENT DIRECTOR: Noman Louie MD PROCEDURES: 1. Coronary angiogram - emergent. 2. Left heart catheterization (LHC): Pressure measurement. 3. Percutaneous coronary intervention (PCI): a. Stents of proximal RCA (drug-eluting stents): A Xience 3.5 x 23 mm; and a second Xience 3.5 x 12 mm overlapping proximally; both post dilated at high pressure to 4.0 mm. CLINICAL DETAILS: This 66-year-old man had no prior history of heart disease until he presented today to [facility] complaining of a three-day history of intermittent severe retrosternal chest discomfort including episodes at rest that had then become severe and continuous today for two hours prior to presentation. He had marc inferior ST elevation and was transferred to this hospital. ECG shows several mm of inferior ST elevation with confirmatory reciprocal ST depression in aVL, as well as ST depression in leads V1 and V2. Underlying CAD risk factors include hypertension, and metformin treated diabetes and family history of premature coronary artery disease. He was markedly hypertensive with initial blood pressure 195/135. FINDINGS: 1. LMCA: Short. Intact. The left main coronary artery has mild atherosclerotic plaquing without angiographically significant narrowing. 2. LAD: The left anterior descending coronary artery is a moderate-size transapical vessel with severe diffuse disease including moderate diffuse proximal disease about 60%; then a severe tubular 90% lesion (CHIDI-3 flow); and DX-1 has diffuse significant proximal disease with a diffuse tubular distal 70% lesion. 3. LCX: The left circumflex coronary artery has a proximal tubular 80% lesion (CHIDI-3 flow); and the LCX distribution consists primarily of a long moderate-size LPL branch. 4. RAMUS: There is a moderate-sized ramus branch with diffuse atherosclerotic plaquing. 5. RCA: Dominant and very large. Note this is a 4 mm or larger vessel with a culprit tubular proximal 95% subtotal lesion at the first RV branch with filling defect consistent with thrombus (CHIDI 2-3 flow). The PDA is moderate size and there is a large RPLB with significant disease in the mid RPLB. 6. LHC: LVED 35 mmHg (pre A 25 mmHg); and no systolic gradient on pullback across the aortic valve. CONCLUSIONS: 1. PCI--two overlapping Xience MICH of proximal RCA culprit lesion. 2. Acute coronary syndrome (ACS): Inferior ST-elevation myocardial infarction. 3. Coronary artery disease (CAD)--multi-vessel CAD including: Culprit subtotal 99% proximal RCA lesion; and 80% proximal LCX lesion; and diffuse disease of the LAD including intermediate diffuse proximal disease with 80% to mid LAD lesion; and disease of the diagonal proximally and mid. RECOMMENDATIONS: 1. ECASA--indefinitely. 2. Prasugrel--plan one year if well tolerated including ongoing Cardiology followup. I discussed with him the critical importance of mandatory dual antiplatelet therapy and not to stop prasugrel for any reason without immediate Cardiology consultation. 3. Echocardiogram. 4. OMT--guideline directed optimal medical therapy for his underlying CAD risk factors and for CAD including DAPT; high-intensity statin; beta-onofre; and ROBERT inhibitor. COMMENT: He has multivessel CAD which may be better amenable to medical management and/or staged intervention than to bypass considering that the LAD Noman Louie MD 06/03/17 [id number] . Brief History History of Present Illness (per admission note): The patient has been in his usual state of health until 2 days prior to admission. That time he began to experience episodes of postprandial heartburn. These were localized in the epigastrium up to the mid chest. Sensation will last between one half and 3 hours. The pain did not radiate elsewhere. He was more related to meals and exertion. There were no other exacerbating or palliating factors. This is the first time he has had this symptom. For 2 days he has had sense of restlessness and muscles diffusely. He notes reduced exertional tolerance with some dyspnea when riding bicycle. On day of admission symptoms began in the morning and were more intense associated with nausea. He has had mild exertional shortness of breath but no orthopnea, PND. Had no increased ankle swelling. Visit no previous history of coronary disease. He is a nonsmoker. He has diabetes and dyslipidemia. Hospital Course 66-year-old man with type II diabetes mellitus and poorly treated hypertension presents with acute coronary syndrome # ST elevation myocardial infarction, inferolateral, acute, present on admission. Peak troponin 5.77, total CK 2268. Stents to RCA placed 06/03. - Prasugrel - Aspirin and intensity statin - Metoprolol and lisinopril - Follow-up and as her see cardiology clinic with Dr. Jose Dyer # Acute systolic congestive heart failure, present on admission. New diagnosis , likely enid-infarct ischemic. Echocardiogram with LVEF 45%. Not clear that he will have significant LV dysfunction after recovery from acute coronary syndrome. - Maintain neutral intake and output balance due to dye load - Continue beta onofre - Initiate ROBERT inhibitor # Atrial fibrillation, not present on admission. Developed on day 2 with rapid ventricular response requiring IV diltiazem. Resolve spontaneously. - No further treatment indicated # Type II diabetes mellitus, chronic. Hemoglobin A1c 9.2% -Patient advised to return to daily Lantus 40-60 units with continued metformin and initiated carbohydrate restriction # Hypertension, poorly controlled, chronic. - Beta onofre; ROBERT inhibitor # Elevated AST, present on admission. Markedly out of proportion to mild elevation of ALT. Hepatitis viral serologies negative. I clearly related to cardiac tissue injury -No further follow-up indicated # GERD, chronic. -Stable . Exam Vital Signs (Last) Date Time Temp Pulse Resp B/P Pulse Ox O2 Delivery O2 Flow Rate FiO2 06/05/17 12:14 36.7 93 18 118/82 96 Room Air Exam General: Suntanned, mildly obese, no acute distress HEENT: sclerae anicteric, oral mucosa moist Neck: 3-4 cm JVP Chest: clear to auscultation Cardiac: S1S2, S4 no murmur, no rub Abdomen: BS normal, non-tender Extremities: No edema Neuro: A&O, cranial nerves symmetric, motor strength 5/5, coordination normal Test 06/03/17 19:40 06/04/17 03:05 06/05/17 03:30 Hemoglobin A1c 9.2% (4.8-5.6) Magnesium Level 1.7mg/dL (1.6-2.6) White Blood Count 9.3th/mm3 (3.8-10.1) Red Blood Count 4.26mil/mm3 (4.40-5.80) Hemoglobin 13.2g/dL (13.8-17.2) Hematocrit 38.2% (41.0-50.0) Mean Corpuscular Volume 89.7fL (81-100) Mean Corpuscular Hemoglobin 31.0pg (27.0-35.0) Mean Corpuscular Hemoglobin Concent 34.6% (32.0-37.0) Red Cell Distribution Width 13.8% (12.3-15.4) Platelet Count 108bil/L (150-400) Total Creatine Kinase 2268U/L (21-232) Troponin T 5.77ug/L (0.0-0.011) Sodium Level 136mEq/L (134-144) Potassium Level 3.9mEq/L (3.5-5.2) Chloride Level 97mEq/L (97-108) Carbon Dioxide Level 23mmol/L (18-29) Blood Urea Nitrogen 18mg/dL (8-27) Creatinine 0.93mg/dL (0.76-1.27) Estimat Glomerular Filtration Rate 87mL/min (>59) Glucose Level 208mg/dL (60-99) Calcium Level 8.6mg/dL (8.5-10.1) Total Bilirubin 0.7mg/dL (0.0-1.2) Aspartate Amino Transf (AST/SGOT) 106U/L (0-50) Alanine Aminotransferase (ALT/SGPT) 58U/L (0-44) Alkaline Phosphatase 48U/L (25-160) Total Protein 6.5g/dL (6.4-8.4) Albumin 3.9g/dL (3.4-5.0) Hepatitis C Comment . Discharge Medications Discharge Medications Aspirin Chew (Aspirin Chew) 81 Mg Chew 81 MG PO DAILY Prescribed by: CA WILSON MD Atorvastatin Calcium (Atorvastatin Calcium) 40 Mg Tablet 80 MG PO HS Prescribed by: CA WILSON MD Insulin Glargine (Lantus U100 Solostar Insulin Pen) 100 Unit/1 Ml Insuln.pen 130 UNIT SUBQ DAILY (Reported) Lisinopril (Lisinopril) 20 Mg Tablet 20 MG PO DAILY Prescribed by: CA WILSON MD Metformin (Metformin) 500 Mg Tablet 500 MG PO BID (Reported) Metoprolol Succinate ER (Metoprolol Succinate ER) 100 Mg Tab.er.24h 100 MG PO DAILY Prescribed by: CA WILSON MD Prasugrel HCl (Effient) 10 Mg Tablet 10 MG PO DAILY Prescribed by: CA WILSON MD Additional med instructions Prescriptions have been printed for cardiac medications. You are to resume metformin and once daily Lantus insulin at a dose that results in morning blood sugars between 80-130 on most days. You may discuss a prescription for Jardiance (empagliflozin) which is a diabetes medication that may reduce cardiac complications. This medication will require prior authorization submitted by your primary care provider. Followup Plan Discharge Diet: Heart Healthy, Diabetic Discharge Activity: Other (avoid strenuous exercise and lifting for 2 weeks; moderate aerobic exercise may resume) Patient Instructions Strict control of blood pressure, diabetes and adherence to cardiac medications especially prasugrel (Effient). Follow-up Provider: Kenny Dyer MD Follow-up with PCP in: 4 weeks (call the cardiology clinic for a follow-up appointment with Dr. Dyer. Indicates that you are hospitalized with stents placed by Dr. Louie.) Provider: Roberto Ramirez MD Follow-up in: 1 week (call for a posthospitalization follow-up visit to monitor blood pressure, diabetes and other issues.) Time spent 45 minutes copies to: Roberto Ramirez MD; Noman Louie MD; Kenny Dyer MD, Jeffrey W MD Jun 05, 2017 13:26
[2017-06-06 08:09] LABS: Gamma Glutamyl Transpeptidase 67 IU/L (0-65); Hepatitis A Antibody IgM Negative (Negative); Hepatitis B Core Antibody IgM Negative (Negative)
== END 2017-06-05 15:00 | disposition home or self-care (01) | DRG 246 ==
LOC: SED 14:10 → SPI 14:27 → PCC 15:30 → CCU 16:25 → PCC 06-04 11:15
PROVIDERS: ADMIT Internal Medicine Cardiovascular Disease; ATTEND Internal Medicine
PROC: 027135Z Dilation of Coronary Artery, Two Arteries with Two Drug-eluting Intraluminal Devices, Percutaneous Approach (ICD-10-PCS; principal; 2017-06-03)
PROC: 4A023N7 Measurement of Cardiac Sampling and Pressure, Left Heart, Percutaneous Approach (ICD-10-PCS; 2017-06-03)
PROC: B2111ZZ Fluoroscopy of Multiple Coronary Arteries using Low Osmolar Contrast (ICD-10-PCS; 2017-06-03)
DX: I21.19 ST elevation (STEMI) myocardial infarction involving other coronary artery of inferior wall (principal); I50.21 Acute systolic (congestive) heart failure; E78.5 Hyperlipidemia, unspecified; K21.9 Gastro-esophageal reflux disease without esophagitis; I10 Essential (primary) hypertension; E11.65 Type 2 diabetes mellitus with hyperglycemia; Z79.84 Long term (current) use of oral hypoglycemic drugs; Z79.4 Long term (current) use of insulin

== ENCOUNTER 2017-07-08 00:05 | Inpatient (IN) | payer OTHER, MEDICAID ==
[~2017-07-08] VITALS: Ht 182.9 cm; Wt 105.7 kg
[2017-07-08] VITALS (22 sets, daily range): BP systolic 117–154; BP diastolic 70–102; PULSE 70–93; RESP 16–22; O2SAT 93–99
[~2017-07-08 00:05] MED LIST: ATOR40TA69 PO; INSU100I13 SUBQ; LISI-567 PO; METF500T4 PO; METO-394 PO; PRAS10TA5 PO
[2017-07-08 08:06] LABS: BASOPHILS % (AUTO) 0.1 % (0-3); EOSINOPHILS % (AUTO) 1.3 % (0-5); MONOCYTES % (AUTO) 7.1 % (4-12); Mean Corpuscular Hemoglobin 30.5 pg (27.0-35.0); Mean Corpuscular Volume 89.7 fL (81-100); NEUTROPHILS % (AUTO) 68.4 % (40-74); Platelet Count 117 bil/L (150-400)
[2017-07-08] MEDS ORDERED: Nitroglycerin 50,000 mcg/250 mL D5W Premix IV ONE (08:42)
[2017-07-08] MEDS ORDERED: Heparin 1,000 Units/500 mL NS Premix IV ONE ×2 (08:42→11:13)
[2017-07-08] MEDS ORDERED: Heparin 1,000 Unit/mL 10 mL Inj ONE ×2 (08:42→09:47)
[2017-07-08] MEDS ORDERED: Heparin 10,000 Unit/1,000 mL NS Premix IV ONE ×2 (08:43→10:27)
[2017-07-08] MEDS ORDERED: fentaNYL-PF 50 mCg/mL 2 mL Inj ONE (09:25)
[2017-07-08] MEDS ORDERED: Verapamil 2.5 mg/mL 2 mL Inj ONE (09:48)
[2017-07-08] MEDS ORDERED: Atropine 1 mg/10 mL (Code) Syringe ONE (10:08)
--- NOTE | 2017-07-08 11:21 | DI95 ---
[address] [address] INTERVENTIONAL CARDIAC CATHETERIZATION PATIENT: DOCTOR Patria MADRIGAL : 1950 MR#: [id number] ADMIT: 07/08/2017 JOB ID: [id number] PROCEDURE: 1. Percutaneous intervention of the LAD. 2. Percutaneous intervention on the circumflex. INCOMPLETE DICTATION: Dictation ends here.
--- NOTE | 2017-07-08 11:25 | DI95 ---
[address] [address] INTERVENTIONAL CARDIAC CATHETERIZATION PATIENT: DOCTOR Patria MADRIGAL : 1950 MR#: [id number] ADMIT: 07/08/2017 JOB ID: [id number] PROCEDURE: Percutaneous intervention on the LAD and the circumflex. INDICATION: Known coronary artery disease, recent acute coronary syndrome. PROCEDURAL DETAILS: The procedure was done via right femoral approach using a 6-German system. A Voda guide was used, and we started off with a run-through wire. Further procedural details are enumerated in the procedure log to which the reader and the coders are referred. INTERVENTIONAL PROCEDURE: We started off with an intervention on the LAD. The LAD was pre-dilated and then stented with a 25 x 15 mm Resolute Osiris stent delivered at 14-16 atmospheres with excellent angiographic results. This patient also has a diagonal that has a tight ostial lesion. It is a tubular stenosis of about 70% to 80%. This is a moderate size diagonal. Wiring this diagonal led to probably lifting of a block in the mid segment of this diagonal. We tried to re-wire this diagonal in order to angioplasty the ostium and tack up the disrupted plaque, however, we were unsuccessful. Initially the patient had some ST changes however these subsided by themselves with a little bit of nitroglycerin. CHIDI 2-3 flow was maintained throughout within this diagonal. We then did an intervention on the circumflex. Choice PT floppy wire had to be used because of an acute turn at the origin of the circumflex. The circumflex lesion was pre-dilated and then stented with a 275 x 18 mm Resolute osiris stent. There was a proximal edge dissection. This was tackled with a second 275 x 12 mm stent. Overlapping inflations were done. The stent was deployed at 16 atmospheres with excellent angiographic result. Following this we made an attempt to get back into this diagonal. However, the wire kept tracking subintimally. Since the patient was not having any EKG changes and his jaw and throat discomfort had subsided I decided not to pursue this any further. The patient will be kept in observation, and I would like him to get nitroglycerin over the next few hours via intravenous infusion. BETTY
[2017-07-08] MEDS ORDERED: 0.9% Sodium Chloride 250 ML BOLUS IV PRN (16:25)
[2017-07-08] MEDS ORDERED: Sodium Chloride LOK Flush 10 mL Syringe IVFLUSH PRN (16:25)
[2017-07-08] MEDS ORDERED: Ondansetron 2 mg/mL 2 mL Inj IVPUSH PRN (16:25)
[2017-07-08] MEDS ORDERED: Atropine 1 mg/10 mL (Code) Syringe IVPUSH PRN (16:25)
[2017-07-08] MEDS ORDERED: 0.9% Sodium Chloride 400 ML (4 HRS) IV ONE (16:25)
--- NOTE | 2017-07-08 16:26 | NUR ---
PERRY Transfer to room 2017 at 1555 by bed. No bleeding or hematoma at right groin puncture site. Pedal pulse present. Denies pain. at bedside. Update to receiving RN.
--- NOTE | 2017-07-08 19:29 | NUR ---
Post heart cath: Pt s/p heart cath, off bedrest at 1745. R groin site is soft/tender, no hematoma noted, scant amount of ooze on dressing, faint bruising around site, pulses strong. Pt ambulated approx 200 ft in unit, initially unsteady on feet but then steadier after a minute. VSS, tele SR, RA O2 sats 93%. Nitro gtt infusing at 10mcg/min. Care ongoing.
--- NOTE | 2017-07-08 23:41 | NUR ---
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 Pt alert and oriented, states he felt ~30 seconds of restlessness/anxiety but denies chest pain. VSS. WCTM. Addendum: 07/09/17 at 0532 by CRISTHIAN ROSSI RN No further episodes of VT. Pt slept most of shift. VSS, R groin site soft, non-tender, minimal bruising remains unchanged. Voiding large amounts of clear yellow urine. Nitro drip continues at 10 mcg/min. C/O mild headache that resolved to pt satisfaction with APAP.
[2017-07-09 03:50] VITALS: BP 133/85; PULSE 81; RESP 16; O2SAT 94
[2017-07-09 05:34] VITALS: PULSE 83
[2017-07-09 07:47] VITALS: BP 125/74; PULSE 83; RESP 16
[2017-07-09 08:00] VITALS: PULSE 86
[2017-07-09 08:55] VITALS: BP 153/83; PULSE 82; RESP 16; O2SAT 96
--- NOTE | 2017-07-09 09:23 | PCM.DIMED ---
Discharge Instructions Date of Service Jul 09, 2017 Dates of Hospitalization Jul 08, 2017 at 15:52 Discharge Diagnosis Discharge Diagnosis Coronary Artery Disease Prior ND Diabetes Diet Discharge Diet: Low fat, Low Sodium, Heart Healthy, Diabetic Activity Discharge Activity: Other (To prevent infection, do not sit in a bath tub, hot tub or pool for 1 week. To prevent bleeding, do not lift, push or pull more than 10 lbs for one week.) Call your provider Call your provider for: Fever or Chills, Bleeding, Excessive diarrhea, Weakness (unilateral) Patient Instructions Provider: Kenny Dyer MD Follow-up in: 3 weeks Grey Alvarenga PA-C Jul 09, 2017 09:23
[2017-07-09 10:41] VITALS: BP 125/75
--- NOTE | 2017-07-09 12:41 | NUR ---
Discharge Pt on nitro gtt, instructed to ween per SABINA, gtt weened slowly over ~1 hour and BP remained stable. Pt discharged to home with family at ~1120 today. Pt given PR and cardiac cath/stent booklets. Pt's IV access D/C'd and intact X2. Pt instructed to f/u with Dr. Deyr 07/27/17 at 1100. Pt refreshed on groin site care post cardiac cath. Pt verbalized understanding of all discharge instructions. All belongings accompanied Pt at time of discharge.
--- NOTE | 2017-07-09 14:27 | NUR ---
Social Work Note: Initial Assessment/Discharge Data& Assessment: EMR reviewed. Pt was discussed in multidisciplinary rounds. Per MD, pt is medically ready for discharge with his significant other via POV. Doctor Shiva is a 66 year old male admitted on 07/08/2017 for elevation stemi myocardial infarction. Per MD pt is medically improved and ready for discharge. BILLET SAWYER met with pt and pt S/O at bedside to confirm discharge plan and assess for any unmet needs, BILLET SAWYER role explained and Discharge Planning Checklist packet provided. Pt is ambulating independently at his baseline without any DME needs. Pt does not have HH or SNF hx. Pt is not a and does not have LTC insurance. Pt did request a [employer] which was completed and faxed in per pt request. Pt denies any other needs. No other discharge needs or MD orders identified. All updated and agreeable to plan. Plan: Per MD pt is medically ready to discharge home with his significant other via POV. Pt denies any other needs. No other discharge needs or MD orders identified. All updated and agreeable to plan. RIMA Webb Addendum: 07/09/17 at 1431 by SEAMUS SIEGEL Amended: Links added.
--- NOTE | 2017-07-13 13:45 | DIS ---
[address] [address] DISCHARGE SUMMARY PATIENT: DOCTOR Patria MADRIGAL : 1950 MR#: [id number] ADMIT: 07/08/2017 JOB ID: [id number] DIS: 07/09/2017 REASON FOR ADMISSION: Patient admitted for coronary angiogram and elective PCI. BRIEF HISTORY: The patient has a history of coronary artery disease, coronary stenting, diabetes mellitus and prior MT. He had been managed with antiplatelet therapy, LDL cholesterol lowering therapy, beta onofre and ROBERT inhibitor. He had presented to the emergency department, in May 2017, with acute inferior MT and a delayed presentation. He was taken to the catheterization laboratory, where stenting of his RCA was done but he had significant disease remaining in the LAD and proximal circumflex which were not treated at that time. Dr. Dyer discussed with the patient the possibility of doing elective procedure to address his significant residual disease, and the patient did wish to move forward with intervention. COURSE IN HOSPITAL: The patient was admitted to the [facility] and taken to the cardiac catheterization laboratory, where he had a percutaneous intervention on the LAD and circumflex coronary arteries. The procedure was done by way of a right femoral arterial approach and was completed without incident. For details of the procedure, please see the interventional cardiac catheterization report. Afterwards, he was taken back to the [facility] for recovery from sedation and then transferred up to the [facility] for overnight observation and telemetry monitoring. He did well overnight and in the morning had no symptom complaints and then had no bleeding from the right femoral access site. He was ambulatory and described feeling very well and having no symptoms. A nitroglycerin drip was maintained the day of the procedure and overnight. In the morning it was weaned off and the patient felt well and was discharged home. DISPOSITION: The patient was discharged home in good condition with a followup appointment at the [facility] Cardiology office in three weeks with a mid-level provider. To prevent infection, he was asked not to sit in a bathtub, hot tub, or pool for one week and to prevent bleeding. He was asked not to lift, push, or pull more than 10 pounds for one week. He was instructed to follow a heart healthy diet and take medications as prescribed. DISCHARGE MEDICATIONS: 1. Atorvastatin 40 mg daily. 2. Insulin Lantus 50 units subcu daily. 3. Lisinopril 20 mg daily. 4. Metformin 500 mg b.i.d. but not to start it until the following day. 5. Metoprolol succinate ER 100 mg daily. 6. Prasugrel 10 mg daily. FINAL DIAGNOSES: 1. Coronary artery disease. 2. Prior myocardial infarction. 3. Diabetes mellitus. 4. Coronary interventions with stent placements.
== END 2017-07-09 14:31 | disposition home or self-care (01) | DRG 247 ==
LOC: SOUO 00:05 → PCC 15:52
PROVIDERS: ADMIT Internal Medicine Cardiovascular Disease; ATTEND Internal Medicine Cardiovascular Disease
PROC: 027034Z Dilation of Coronary Artery, One Artery with Drug-eluting Intraluminal Device, Percutaneous Approach (ICD-10-PCS; principal; 2017-07-08)
PROC: B2101ZZ Fluoroscopy of Single Coronary Artery using Low Osmolar Contrast (ICD-10-PCS; 2017-07-08)
DX: I25.10 Atherosclerotic heart disease of native coronary artery without angina pectoris (principal); E11.9 Type 2 diabetes mellitus without complications; I25.2 Old myocardial infarction; Z95.5 Presence of coronary angioplasty implant and graft; Z79.84 Long term (current) use of oral hypoglycemic drugs